=== PATIENT | female | born 1990 | race Hispanic/Latino ===

== ENCOUNTER 2024-11-04 11:20 | Emergency (ER) | payer OTHER ==
[~2024-11-04] VITALS: Ht 172.7 cm; Wt 148.0 kg
[2024-11-04] MEDS ORDERED: DEXA2TA PO (11:32)
[2024-11-04] MEDS ORDERED: MULTTAB20 PO (11:32)
[2024-11-04] MEDS ORDERED: CYCL-707 PO (11:32)
[2024-11-04] MEDS: CYCLOBENZAPRINE 10 MG TABLET PO ONE (16:51)
[2024-11-04] MEDS: KETOROLAC 60 MG/2 ML VIAL IM ONE (16:52)
[2024-11-04 18:02] LABS: HCG, SERUM QUALITATIVE NEGATIVE (NEGATIVE)
[2024-11-04] MEDS ORDERED: LIDO1ADH93 TD (18:56)
[2024-11-04] MEDS: LIDOCAINE 5% PATCH TD ONE (19:13)
[2024-11-04 19:17] VITALS: BP 115/76; TEMP 98.3; O2SAT 97
== END 2024-11-04 19:19 | disposition home or self-care (01) ==
LOC: M ED 11:20
DX: M54.31 Sciatica, right side (principal); M51.26 Other intervertebral disc displacement, lumbar region; M51.362 Other intervertebral disc degeneration, lumbar region with discogenic back pain and lower extremity pain; M25.78 Osteophyte, vertebrae; D64.9 Anemia, unspecified; Z79.899 Other long term (current) drug therapy
CPT/HCPCS: 72131; 84703; 96372; 99283; J1885